=== PATIENT | female | born 1940 | race Caucasian/White ===

== ENCOUNTER 2017-02-09 06:10 | Day surgery (SDC) | payer MEDICARE, MEDICAID ==
[~2017-02-09] VITALS: Ht 165.1 cm; Wt 79.3 kg
[2017-02-09] VITALS (17 sets, daily range): BP systolic 102–126; BP diastolic 62–76; PULSE 58–66; RESP 10–25; Ht 165.1 cm; Wt 79.3 kg
[~2017-02-09 06:10] MED LIST: AMLO2.5T2 PO; ATOR10TA23 PO; CLOP75TA19 PO; ESCI5TAB PO; EZET10TA3 PO; HYDR-762 PO; METO25TA54 PO; PANT40TA3 PO; VIC PO; VITAMIN D
[2017-02-09] MEDS ORDERED: LOSA25TA5 PO (08:20)
[2017-02-09] MEDS ORDERED: SIMV10TA PO (08:21)
[2017-02-09] MEDS ORDERED: LORA0.5T PO (08:22)
[2017-02-09] MEDS ORDERED: ZOLP5TAB PO (08:23)
[2017-02-09] MEDS ORDERED: BUPR-34 PO (08:24)
[2017-02-09] MEDS ORDERED: IBUP-1542 PO (08:24)
[2017-02-09] MEDS ORDERED: CARI350T29 PO (08:25)
[2017-02-09] MEDS ORDERED: OXYC5CAP17 PO (08:25)
[2017-02-09] MEDS ORDERED: TAMS-14 PO (08:26)
[2017-02-09] MEDS ORDERED: MECL-77 PO (08:27)
[2017-02-09] MEDS ORDERED: DIPHENHYDRAMINE 50 MG CAP PO ONE (08:30)
[2017-02-09] MEDS ORDERED: FAMOTIDINE 20 MG TAB PO ONE (08:30)
[2017-02-09] MEDS ORDERED: SOD CHLORIDE 0.45% 1,000 ML IV ONE (08:30)
[2017-02-09] MEDS ORDERED: DIAZEPAM 5 MG TAB PO ONE (08:30)
[2017-02-09] MEDS ORDERED: CHOL100062 PO (08:40)
[2017-02-09] MEDS ORDERED: NITR0.4T6 SL (08:41)
[2017-02-09] MEDS ORDERED: MAGN400T27 PO (08:41)
[2017-02-09 08:46] LABS: ADD SCAN DIFF NO
--- NOTE | 2017-02-09 09:04 | RADRPT ---
PROCEDURE: XR Chest. CLINICAL INDICATION: Preoperative chest TECHNIQUE: Chest AP portable COMPARISON: None available FINDINGS: The mediastinal structures are unremarkable. There is calcification of the thoracic aorta (consiste nt with atherosclerosis). The heart is normal in size and configuration. The pulmonary vascularity is normal. The lung nolen are unremarkable. No consolidation is identified. The pleural spaces are unremarkable. The osseous structures are unremarkable. IMPRESSION: Calcification of the thoracic aorta (consistent with atherosclerosis). No evidence for active cardiopulmonary disease. RPTAT: [facility] .Paolo Orr MD, Date Time Electronically viewed and signed by .Paolo Orr MD, on 02/09/2017 09:04 .B/
[2017-02-09 09:10] LABS: BASOPHIL # 0.1 10^3/ul (0.0-0.1); BASOPHILS % 0.5 % (0.0-2.0); EOSINOPHILS # 0.1 10^3/ul (0.0-0.5); EOSINOPHILS % 0.8 % (0.0-7.0); HEMATOCRIT 39.6 % (37.0-47.0); HEMOGLOBIN 12.1 g/dl (12.0-16.0); LYMPHOCYTES # 2.2 10^3/ul (0.8-2.9); LYMPHOCYTES % 22.1 % (15.0-51.0); MEAN CORPUSCULAR HEMOGLOBIN 27.4 pg (29.0-33.0); MEAN CORPUSCULAR HGB CONC 30.6 g/dl (32.0-37.0); MEAN CORPUSCULAR VOLUME 89.6 fl (82.0-101.0); MEAN PLATELET VOLUME 9.7 fl (7.4-10.4); MONOCYTE # 0.8 10^3/ul (0.3-0.9); MONOCYTES % 8.1 % (0.0-11.0); NEUTROPHIL # 6.7 10^3/ul (1.6-7.5); NEUTROPHILS % 68.2 % (39.0-77.0); PLATELET COUNT 252 10^3/UL (140-415); RED BLOOD COUNT 4.42 10^6/ul (4.20-5.40); WHITE BLOOD COUNT 9.8 10^3/ul (4.8-10.8)
[2017-02-09 09:11] LABS: INR 1.05; PROTIME 13.7 Sec (12.2-14.2); PT RATIO 1.1
[2017-02-09 09:12] LABS: PARTIAL THROMBOPLASTIN TIME 28.3 Sec (25.0-35.0)
[2017-02-09] MEDS ORDERED: LIDOCAINE 1% (MDV) 20 ML INJ ONE (09:13)
[2017-02-09] MEDS ORDERED: HEPARIN 1000 UNITS/NS (A-LINE) 2,000 ML ONE (09:13)
[2017-02-09] MEDS ORDERED: IODIXANOL LOCM 100 ML BTL ONE (09:13)
[2017-02-09] MEDS ORDERED: HEPARIN 1000 UNITS/ML 10 ML INJ ONE (09:13)
[2017-02-09] MEDS ORDERED: VERAPAMIL 5 MG INJ ONE (09:14)
[2017-02-09] MEDS ORDERED: FENTAnyl 50 MCG/ML VIAL ONE (09:14)
[2017-02-09] MEDS ORDERED: MIDAZOLAM 1 MG/ML 2 ML INJ ONE (09:14)
[2017-02-09] MEDS ORDERED: NITROGLYCERIN (IC) 100 MCG/ML INJ ONE (09:15)
[2017-02-09 09:16] LABS: CHOL/HDL RATIO 1.8 RATIO
[2017-02-09 09:19] LABS: CALCIUM 9.6 mg/dl (8.4-10.2); CREATININE 1.18 mg/dl (0.44-1.00); POTASSIUM 4.4 mmol/L (3.5-5.1)
[2017-02-09] MEDS ORDERED: SOD CHLORIDE 0.9% 1,000 ML IV SCH (10:10)
[2017-02-09] MEDS ORDERED: AL HYDROX/MG HYDROX/SIMETH 30 ML CUP PO PRN (10:30)
[2017-02-09] MEDS ORDERED: morphine 2 MG INJ IV PRN (10:30)
[2017-02-09] MEDS ORDERED: ACETAMINOPHEN 325 MG TAB PO PRN (10:30)
[2017-02-09] MEDS ORDERED: ONDANSETRON 4 MG INJ IV PRN (10:30)
--- NOTE | 2017-02-09 10:40 | CARRPT ---
DATE OF PROCEDURE: 02/09/2017 TYPE OF PROCEDURE: 1. Left heart catheterization. 2. Coronary angiography. 3. Measurement of left ventricular end-diastolic pressure. ATTENDING PHYSICIAN: Leola Tapia MD REFERRING PHYSICIAN: Pascale Padilla MD INDICATION: Chest pain, positive stress test findings for anterior and inferior ischemia. TYPE OF ANESTHESIA: Conscious, local. BRIEF HISTORY: Ms. Bravo is a 76-year-old female with a history of hypertension, dyslipidemia, c oronary artery disease, status post prior PTCA and stent placement to LAD in 2004, who initially pre sented with complaints of substernal chest pain. The patient subsequently underwent a cardiac stres s test revealing anterior and inferior ischemia. Given these findings, the patient referred for and presents today in order to undergo left heart catheterization to assess for the possibility of sign ificant obstructive coronary artery disease lending to symptoms of chest pain and positive stress te st findings. PROCEDURE: After informed consent was obtained, the patient was brought to the [facility] cardiac catheterization lab where her right radial area was prepped and draped in usual aristeo rile fashion. Lidocaine 2% was infiltrated into the right radial area in order to achieve adequate local anesthesia. Using modified Seldinger technique, the right radial artery was cannulated and a 6-Occitan arterial sheath was placed. A 6-Occitan JL3.5 catheter was used to cannulate the left main coronary ostium. With contrast injection, multiple views of the left coronary arterial system were obtained. JL3.5 was removed over a guidewire and a JR4 was used to cannulate the right coronary art erial ostium. With contrast injection, multiple views of the right coronary arterial system. JL4 w as removed over a guidewire after initially being used to cross the aortic valve and placed in the LV for measurement of left ventricular end-diastolic pressure. Subsequently, at this time, the cath eter was removed. This completed the procedure. There were no noted complications. FINDINGS: Coronary angiography: Left main long 4.5 mm, distal 20% stenosis. Circumflex proximally is a 3 mm vessel and right at the bifurcation it splits and the circumflex continuation AV groove is free of a ny significant focal stenoses, and an obtuse marginal 3 mm vessel with no significant focal stenoses . LAD proximally is a 3 mm vessel and has a proximally placed stent which is widely patent with in- stent restenosis up to approximately 30% in a very focal area right in the mid portion of the stent. The remainder of the LAD thereafter is free of any significant focal stenoses. There is a mid bra nching diagonal 2 mm vessel with no significant focal stenoses right the coronary sinus. The right coronary artery proximally is a 3 mm vessel. In its midportion, it has a very focal approxima tely 40% stenosis. The remainder of the right coronary artery is free of significant focal stenoses , dominant vessel, gives off a 2.5 mm PDA and a 2 mm posterolateral branch, each with no significant focal stenoses. Measurement of left ventricular end-diastolic pressure of 14 to 15. No significant aortic stenosis by gradient. TOTAL FLUOROSCOPY TIME: 1.9 minutes. TOTAL CONTRAST: 44 mL. IMPRESSION: 1. Mild to moderate nonobstructive coronary artery disease. 2. Widely patent proximal left anterior descending stent with mild to moderate in-stent restenosis in a focal area. 3. Normal left heart filling pressures. 4. No significant aortic stenosis by gradient. RECOMMENDATIONS: In light of procedure findings at this time would: 1. Maximize medical management. 2. Aggressive risk factor reduction. 3. The patient to be readmitted to the same day surgery center for post-catheterization observation with probable discharge later this afternoon. 4. The patient is scheduled for a followup appointment in our office at which time we will discuss the results of this procedure and ensure that the patient has had no post-catheterization complicati ons. Dictated By: LEOLA KIM/RODERICK Conf#: [id number] DID#: [id number] CC: PASCALE PADILLA MD;*EndCC*
--- NOTE | 2017-02-09 19:31 | RADRPT ---
Vent Rate: 61 bpm RR Interval: 0 msec SC Interval: 198 msec QRS Duration: 78 msec QT Interval: 436 msec QTC Interval: 438 msec P-R-T [place]: 48 - -14 - 5 degrees Normal sinus rhythm Nonspecific T wave abnormality Abnormal ECG Electronically Signed By: Jeffrey Tapia [id number]
== END 2017-02-09 16:45 | disposition home or self-care (01) ==
LOC: SDS 06:10
PROVIDERS: ATTEND Internal Medicine
DX: I25.10 Atherosclerotic heart disease of native coronary artery without angina pectoris (principal); Z95.5 Presence of coronary angioplasty implant and graft; I10 Essential (primary) hypertension; E78.5 Hyperlipidemia, unspecified; Z88.0 Allergy status to penicillin; Z88.2 Allergy status to sulfonamides; Z88.1 Allergy status to other antibiotic agents
CPT/HCPCS: 71010; 80048; 80061; 85025; 85610; 85730; 93005; 93458; C1769; C1887; J1644; J2250; J3010; Q9967